=== PATIENT | male | born 1965 | race Caucasian/White ===

== ENCOUNTER 2018-09-06 11:23 | Outpatient (CLI) | payer BC ==
[~2018-09-06 11:23] MED LIST: DIPH25CA83 PO; ONDA4TAB6 PO
== END 2018-09-06 23:59 | disposition home or self-care (01) ==
LOC: VAS 11:23
PROVIDERS: ATTEND Family Medicine
DX: I82.441 Acute embolism and thrombosis of right tibial vein (principal)
CPT/HCPCS: 93971

== ENCOUNTER 2022-12-19 16:48 | Emergency (ER) | payer BC ==
[~2022-12-19] VITALS: Ht 188 cm; Wt 97.0 kg
[2022-12-19 17:33] LABS: BASOPHILS # (AUTO) 0.1 X10'3 (0-0.2); BASOPHILS % (AUTO) 0.5 % (0-1); EOSINOPHILS # (AUTO) 0.1 X10'3 (0-0.9); EOSINOPHILS % (AUTO) 0.5 % (0-6); HEMATOCRIT 49.7 % (42.0-52.0); HEMOGLOBIN 16.6 g/dl (14.0-17.9); LYMPHOCYTES % (AUTO) 9.8 % (21-51); MEAN CORPUSCULAR HEMOGLOBIN 30.9 PG (27.0-31.0); MEAN CORPUSCULAR HGB CONC 33.5 g/dL (33.0-36.5); MEAN CORPUSCULAR VOLUME 92.2 FL (78-98); MEAN PLATELET VOLUME 7.6 FL (7.4-10.4); MONOCYTES # (AUTO) 0.8 X10'3 (0-0.9); MONOCYTES % (AUTO) 7.2 % (2-12); NEUTROPHILS # (AUTO) 8.6 X10'3 (1.8-7.7); PLATELET COUNT 210 X10'3 (140-440); RED BLOOD COUNT 5.39 X10'6 (4.70-6.10); RED CELL DISTRIBUTION WIDTH 13.1 % (11.5-14.5); WHITE BLOOD COUNT 10.5 X10'3 (4.5-11.0)
[2022-12-19 17:36] LABS: ALANINE AMINOTRANSFERASE 28 U/L (12-78); ALBUMIN 3.8 G/DL (3.4-5.0); ALKALINE PHOSPHATASE 62 IU/L (46-116); ANION GAP 8 (8-16); ASPARTATE AMINO TRANSFERASE 19 U/L (10-37); BILIRUBIN,TOTAL 0.5 MG/DL (0.1-1.0); BLOOD UREA NITROGEN 18 MG/DL (7-18); BUN/CREATININE RATIO 14.8 (10.0-20.0); CALCIUM 9.1 MG/DL (8.5-10.1); CHLORIDE 106 MMOL/L (99-107); CREATININE 1.22 MG/DL (0.60-1.10); GLUCOSE 113 MG/DL (70-104); POTASSIUM 4.1 MMOL/L (3.5-5.1); SODIUM 140 MMOL/L (135-145); TOTAL CARBON DIOXIDE 26.4 MMOL/L (24-32); TOTAL PROTEIN 7.5 G/DL (6.4-8.2); eGFR 61 ML/MIN
[2022-12-19] MEDS ORDERED: dexamethasone sod phosphate 10mg/ml inj IV STA (19:33)
[2022-12-19] MEDS ORDERED: normal saline 1000ml 1,000 ML IV SCH (19:35)
[2022-12-19] MEDS ORDERED: ketorolac trometh. 30mg/ml inj. IV ONE (19:35)
[2022-12-19] MEDS ORDERED: LORazepam 2 mg/ml vial IV ONE (19:35)
--- NOTE | 2022-12-19 19:45 | NUR ---
Pt ref to have Decadron and Ativan at this time. Pt wanted to see if the Toradol was effective.
--- NOTE | 2022-12-19 21:09 | NUR ---
WENT IN TO ASSESS THE PATIENT AND ADMINISTER THE PATIENTS' MEDICATION. EDUCATION ON MEDICATIONS GIVEN. ALL QUESTIONS ANSWERED. REVIEWED LPNS' ASSESSMENT, AND EVERYTHING DOCUMENTED I AGREE WITH. THE PATIENT IS WITH HIS .
[2022-12-19] MEDS ORDERED: IBUP-1984 PO (21:47)
[2022-12-19] MEDS ORDERED: CYCL-1 PO (21:47)
[2022-12-19 22:11] VITALS: BP 122/72
== END 2022-12-19 21:55 | disposition home or self-care (01) ==
LOC: ER 16:50
DX: M54.9 Dorsalgia, unspecified (principal); M54.2 Cervicalgia; Z87.442 Personal history of urinary calculi; Z79.899 Other long term (current) drug therapy
CPT/HCPCS: 36415; 71045; 80053; 83735; 83880; 84484; 85025; 93005; 96361; 96374; 96375; 99285; J1100; J1885; J2060; J7030

== ENCOUNTER 2023-09-23 10:41 | Day surgery (SDC) | payer BC ==
[2023-09-22 15:52] LABS: BASOPHILS % (AUTO) 0.7 % (0-1); BILIRUBIN,URINE NEGATIVE (Neg); CLARITY,URINE CLEAR (Clear); COLOR,URINE YELLOW (Yellow); EOSINOPHILS # (AUTO) 0.2 X10'3 (0-0.9); EOSINOPHILS % (AUTO) 3.6 % (0-6); GLUCOSE, URINE NEGATIVE (Neg); KETONES,URINE NEGATIVE (Neg); LEUKOCYTE ESTERASE ,URINE NEGATIVE (Neg); LYMPHOCYTES # (AUTO) 1.7 X10'3 (1.1-4.8); LYMPHOCYTES % (AUTO) 29.2 % (21-51); MEAN CORPUSCULAR HEMOGLOBIN 31.3 PG (27.0-31.0); MEAN CORPUSCULAR HGB CONC 33.3 g/dL (33.0-36.5); MONOCYTES # (AUTO) 0.6 X10'3 (0-0.9); MONOCYTES % (AUTO) 10.9 % (2-12); NEUTROPHILS # (AUTO) 3.3 X10'3 (1.8-7.7); NEUTROPHILS % (AUTO) 55.6 % (42-75); NITRITES, URINE NEGATIVE (Neg); OCCULT BLOOD,URINE TRACE-INTACT (Neg); PRE OP HEMATOCRIT 43.9 % (42.0-52.0); PRE OP HEMOGLOBIN 14.6 g/dL (14.0-17.9); PRE OP PLATELET COUNT 232 X10'3 (140-440); PRE OP WHITE BLOOD COUNT 5.9 10'3 (4.8-10.8); PROTEIN,URINE NEGATIVE (Neg); RED BLOOD COUNT 4.67 X10'6 (4.70-6.10); RED CELL DISTRIBUTION WIDTH 13.7 % (11.5-14.5); UROBILINOGEN,URINE 0.2 E.U/dL (0.2-1.0)
[2023-09-22 16:08] LABS: MUCUS STRANDS FEW /LPF (Neg); SQUAMOUS EPITHELIAL CELL,UR FEW /LPF (FEW); UA COLLECTION TYPE CLN CATCH MIDSTREAM
[2023-09-22 16:09] LABS: ALBUMIN 3.8 G/DL (3.4-5.0); ALBUMIN/GLOBULIN RATIO 1.2 (1.1-1.5); ALKALINE PHOSPHATASE 53 IU/L (46-116); BACTERIA,URINE FEW /HPF (Neg); BLOOD UREA NITROGEN 13 MG/DL (7-18); BUN/CREATININE RATIO 9.4 (10.0-20.0); CALCIUM 9.1 MG/DL (8.5-10.1); CHLORIDE 106 MMOL/L (99-107); CREATININE 1.38 MG/DL (0.60-1.10); PRE OP ALT 48 U/L (30-65); PRE OP ANION GAP 10 (8-16); PRE OP AST 27 U/L (10-37); PRE OP BILIRUB, TOTAL 0.4 MG/DL (0.0-1.0); PRE OP GLUCOSE 91 MG/DL (70-104); PRE OP POTASSIUM 4.2 MMOL/L (3.4-5.1); PRE OP SODIUM 143 MMOL/L (135-145); TOTAL CARBON DIOXIDE 26.7 MMOL/L (24-32); WBC,URINE 0-4 /HPF (0-4); eGFR 53 ML/MIN
[2023-09-23] VITALS (15 sets, daily range): BP systolic 115–159; BP diastolic 70–96; PULSE 56–75; RESP 12–21; TEMP 97.8; O2SAT 16–97
[~2023-09-23] VITALS: Ht 188 cm; Wt 103.4 kg
[~2023-09-23 10:41] MED LIST changes: -DIPH25CA83 PO; +FLO0.4C PO; +IBUP-1984 PO; +OMEP20CA16 PO; -ONDA4TAB6 PO; +cefazolin 2gm/D5W 100mL 100 ML IV ONE; +famotidine 20mg tablet PO ONE; +ringers solution, lacted 1,000 ML IV SCH
[2023-09-23] MEDS ORDERED: IBUP-1984 PO (12:02)
[2023-09-23] MEDS ORDERED: BUPIVAcaine/PF 2.5mg/ml (0.25%) 10ml vial ONE (15:50)
[2023-09-23] MEDS ORDERED: fentaNYL/PF 50MCG/1 ML 2ML syringe ONE (16:39)
[2023-09-23] MEDS ORDERED: propofol inj 20 ML IV ONE (16:40)
[2023-09-23] MEDS ORDERED: rocuronium 10mg/ml inj IV ONE (16:40)
[2023-09-23] MEDS ORDERED: midazolam 1 mg/ML 2ml injection ONE (16:40)
[2023-09-23] MEDS ORDERED: ondansetron/PF 4mg/2ml inj ONE (17:34)
[2023-09-23] MEDS ORDERED: dexamethasone sod phosphate 4mg/ml inj. ONE (17:34)
[2023-09-23] MEDS ORDERED: acetaminophen 1,000mg/100ml IV 100 ML IV ONE (17:34)
[2023-09-23] MEDS ORDERED: BUPIVAcaine 0.5% inj/PF 30 ml vial IJ ONE (17:41)
[2023-09-23] MEDS ORDERED: sugammadex 200mg/2ml injection IV ONE (17:44)
[2023-09-23] MEDS ORDERED: meperidine/PF 50mg/ml syringe ONE (17:57)
[2023-09-23] MEDS ORDERED: ondansetron/PF 4mg/2ml inj IV PRN (18:00)
[2023-09-23] MEDS ORDERED: morphine 4 MG/ML inj SYRINge IV PRN (18:00)
[2023-09-23] MEDS ORDERED: proCHLORperazine 10 MG/2 ml inj IV PRN (18:00)
[2023-09-23] MEDS ORDERED: ketorolac trometh. 30mg/ml inj. IV ONE (18:00)
[2023-09-23] MEDS ORDERED: ringers solution, lacted 1,000 ML IV SCH (18:00)
[2023-09-23] MEDS ORDERED: morphine 2 MG/ML inj. syringe IV PRN (18:00)
[2023-09-23] MEDS ORDERED: meperidine/PF 25mg/ml syringe IV PRN ×3 (18:00)
[2023-09-23] MEDS ORDERED: oxyCODONE/APAP 10/325mg tablet PO ONE (18:55)
== END 2023-09-23 20:06 | disposition home or self-care (01) ==
LOC: PAS 10:41
PROVIDERS: ATTEND Surgery
DX: K42.9 Umbilical hernia without obstruction or gangrene (principal); M62.08 Separation of muscle (nontraumatic), other site; G89.29 Other chronic pain; G47.30 Sleep apnea, unspecified; N40.0 Benign prostatic hyperplasia without lower urinary tract symptoms; Z79.899 Other long term (current) drug therapy; Z98.890 Other specified postprocedural states; Z72.89 Other problems related to lifestyle; Z86.718 Personal history of other venous thrombosis and embolism; Z87.442 Personal history of urinary calculi; Z80.1 Family history of malignant neoplasm of trachea, bronchus and lung
CPT/HCPCS: 36415; 49613; 80053; 81001; 82948; 85025; 93005; C1781; J0131; J0690; J1100; J1885; J2175; J2250; J2405; J2704; J3010; J3490; J7030; J7120; S0020; Z7506; Z7508; Z7512; A4618; A7000

== ENCOUNTER 2023-10-06 11:31 | Outpatient (CLI) | payer BC ==
[~2023-10-06 11:31] MED LIST changes: -cefazolin 2gm/D5W 100mL 100 ML IV ONE; -famotidine 20mg tablet PO ONE; -ringers solution, lacted 1,000 ML IV SCH
[2023-10-06] MEDS ORDERED: RIVA15TA PO (14:50)
== END 2023-10-06 23:59 | disposition home or self-care (01) ==
LOC: VAS 11:31
PROVIDERS: ATTEND Surgery
DX: I82.533 Chronic embolism and thrombosis of popliteal vein, bilateral (principal); R22.43 Localized swelling, mass and lump, lower limb, bilateral; M79.662 Pain in left lower leg; M79.661 Pain in right lower leg
CPT/HCPCS: 93970

== ENCOUNTER 2023-10-06 12:36 | Emergency (ER) | payer BC ==
[~2023-10-06] VITALS: Ht 188 cm; Wt 102.6 kg
[2023-10-06 12:47] VITALS: TEMP 98.7
[2023-10-06 13:57] LABS: BASOPHILS % (AUTO) 0.2 % (0-1); EOSINOPHILS # (AUTO) 0.3 X10'3 (0-0.9); EOSINOPHILS % (AUTO) 3.3 % (0-6); HEMATOCRIT 44.6 % (42.0-52.0); HEMOGLOBIN 14.9 g/dl (14.0-17.9); LYMPHOCYTES # (AUTO) 1.5 X10'3 (1.1-4.8); LYMPHOCYTES % (AUTO) 17.4 % (21-51); MEAN CORPUSCULAR HEMOGLOBIN 31.1 PG (27.0-31.0); MEAN CORPUSCULAR HGB CONC 33.5 g/dL (33.0-36.5); MEAN CORPUSCULAR VOLUME 92.9 FL (78-98); MEAN PLATELET VOLUME 7.6 FL (7.4-10.4); MONOCYTES # (AUTO) 0.5 X10'3 (0-0.9); NEUTROPHILS # (AUTO) 6.1 X10'3 (1.8-7.7); NEUTROPHILS % (AUTO) 73.1 % (42-75); PLATELET COUNT 234 X10'3 (140-440); RED CELL DISTRIBUTION WIDTH 13.3 % (11.5-14.5); WHITE BLOOD COUNT 8.4 X10'3 (4.5-11.0)
[2023-10-06 14:12] LABS: APTT 27 SECONDS (22-32); PROTHROMBIN TIME 10.6 SECONDS (9.0-12.0)
[2023-10-06 14:14] LABS: ALANINE AMINOTRANSFERASE 35 U/L (12-78); ALBUMIN 3.5 G/DL (3.4-5.0); ALBUMIN/GLOBULIN RATIO 0.9 (1.1-1.5); ALKALINE PHOSPHATASE 59 IU/L (46-116); ANION GAP 7 (8-16); ASPARTATE AMINO TRANSFERASE 18 U/L (10-37); BILIRUBIN,TOTAL 0.5 MG/DL (0.1-1.0); BLOOD UREA NITROGEN 12 MG/DL (7-18); BUN/CREATININE RATIO 11.1 (10.0-20.0); CALCIUM 9.3 MG/DL (8.5-10.1); CHLORIDE 105 MMOL/L (99-107); CREATININE 1.08 MG/DL (0.60-1.10); GLUCOSE 112 MG/DL (70-104); POTASSIUM 4.2 MMOL/L (3.5-5.1); SODIUM 142 MMOL/L (135-145); TOTAL PROTEIN 7.2 G/DL (6.4-8.2); eCRCL 87 ML/MIN; eGFR 70 ML/MIN
[2023-10-06 14:17] LABS: MAGNESIUM 1.9 MG/DL (1.5-2.4)
[2023-10-06] MEDS ORDERED: RIVA15TA PO (14:50)
[2023-10-06 15:04] VITALS: BP 103/63; PULSE 70; RESP 16; O2SAT 95
== END 2023-10-06 15:20 | disposition home or self-care (01) ==
LOC: ER 12:37
DX: I82.492 Acute embolism and thrombosis of other specified deep vein of left lower extremity (principal); I87.092 Postthrombotic syndrome with other complications of left lower extremity; Z87.448 Personal history of other diseases of urinary system; Z79.899 Other long term (current) drug therapy
CPT/HCPCS: 36415; 80053; 83735; 84484; 85025; 85610; 85730; 99284

== ENCOUNTER → 2025-02-04 | Emergency (ER) | payer BC ==
[~2025-02-04] VITALS: Ht 188 cm; Wt 215.0 kg
[~2025-02-04] MED LIST changes: -FLO0.4C PO; +RIVA15TA PO; +TAMS-55 PO
[2025-02-04 20:44] VITALS: BP 125/66; PULSE 95; RESP 18; TEMP 97.8; O2SAT 96
--- NOTE | 2025-02-04 22:57 | Physician Documentation ---
History of Present Illness ~ Chief Complaint: Blurred Vision Stated Complaint: BLURRY VISION Time Seen by MD: 22:15 OK to notify your PCP?: Yes Primary Medical Doctor: ANA KAMARA Source: patient Mode of Arrival: POV Exam Limitations: no limitations HPI Mingo is a 59-year-old male presenting for a 20 minute episode of having letters disappear when trying to read at approximately 1:00 p.m. today. He states he was reading something and noticed it certain letters were missing such as the "O, N and K" and the letters looked like they were falling off the page as he was reading. He reports that he stopped reading for about 20 minutes to give himself a break and when he returned to try to read something he was able to read normally. 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 He admits that he can be forgetful and sometimes does not take the Xarelto everyday. He reports that he has had normal bilateral carotid Dopplers but does not remember the year that he had them done. He is currently asymptomatic. Medication Reconciliation Allergies: Coded Allergies: No Known Allergies (Unverified , 11/17/14) Scheduled Ibuprofen* (Motrin*), 400 MG PO Q6H, (Reported) Omeprazole (Omeprazole), 1 CAP PO TIDWM, (Reported) Rivaroxaban (Xarelto), 1 TAB PO BIDBD Tamsulosin Hcl* (Flomax*), 1 TAB PO BID, (Reported) Past Medical History Past Medical History: Sinusitis, Kidney Stones, *MUSCULOSKELETAL*, Deep Vein Thrombosis Past Surgical History: orthopedic surgeries Alcohol Use: Occasionally Drug Use: none Lives with: Family Lives In: Home Occupation: employed Review of Systems All Other Systems at this time: Reviewed and Negative Physical Exam Vital Signs: RN Vital Signs have been reviewed: Yes, Temperature: 97.8, Source: Oral, Heart Rate: 95, Respiratory Rate: 18, BP: 125/66, Pulse Oximetry: 96, Weight: 215.000 Pulse Oximetry Reflects: adequate oxygenation General Appearance: alert, no apparent distress Pupils/EOM/Fundus: PERRLA, EOM intact EENT: moist mucous membranes Ear: auricle normal Neck: normal inspection, full range of motion, supple Neck No carotid bruit. Respiratory: lungs clear, normal breath sounds, no respiratory distress Chest: no accessory muscle use, chest non-tender Cardiovascular: regular rate, rhythm, no edema, no gallop, no JVD Extremities: normal inspection Orientation / Memory / CN Exam: oriented x3, memory intact, normal speech Motor / Sensory: no motor deficit Coordination / Gait: normal gait Psychiatric: appropriate Skin: warm/dry Progress Results/Orders Results/Orders Vital Signs 02/04/25 20:44 Temp 97.8 Pulse 95 Resp 18 B/P (MAP) 125/66 Pulse Ox 96 Medical Decision Making Additional info obtained from: old records Findings Mingo is a 59-year-old male with reports of a 20 minute episode of difficulty reading as the letters or either missing or falling off the page. This resolved after taking a break from reading. He is on Xarelto 20 mg for which she is supposed to be taking daily but he admits to forgetting to take it at times. He has a history of blood clots in his legs. I discussed this case with Dr. Brewster. He recommended that since this patient has had normal bilateral carotid Dopplers and on exam there is no carotid bruit that this is likely not the cause and that this patient does not require a CT scan of the head. He recommends th is patient follow up with Ophthalmology as they can perform specialized tests that we do not have in the emergency department. This patient is able to read normally with his glasses and has normal visual acuity testing which was performed in front of me by the nurse. We discussed the possibility of a TIA since this was only a 20 minute episode and self-resolved. We discussed that if he has any more symptoms like this to please return to the emergency department. Return to the emergency department for any new or worsening symptoms and follow up with his primary care provider in the next 3 days. Using shared decision- making with the patient he agrees to this plan of not performing a CT head today and instead following up with an conductor symphonic orchestra and returning back here for any stroke-like symptoms or symptoms that he had today. His NIH score was 0. Differential Dx:Considerations: Include: German's Palsey, CVA, Hypoxemia Departure Disposition: HOME / SELF CARE / HOMELESS Impression: Primary Impression: Blurring of visual image Condition: Stable Discharge Instructions: Blurred Vision, Adult Additional Instructions: Primary care provider on Thursday as well as the conductor symphonic orchestra for follow up. Return to the emergency department for any new or worsening symptoms. Can take continue taking Xarelto as prescribed. Referrals: NO PRIMARY CARE PROVIDER (PCP) Education Educated: Patient Educated regarding: diagnosis, treatment, prognosis, need for follow up Signature Scribe Signature: . Attestation: Scribed for Christi Noble Wool Spotter by Christi Molina NP . 02/05/25 01:31 CHRISTI NOBLE [employer]CH[employer]IC February 04, 2025 22:57
== END | disposition home or self-care (01) ==
LOC: ER 20:42
DX: H53.8 Other visual disturbances (principal); Z86.718 Personal history of other venous thrombosis and embolism; Z79.899 Other long term (current) drug therapy; Z72.89 Other problems related to lifestyle; Z98.890 Other specified postprocedural states; Z87.442 Personal history of urinary calculi
CPT/HCPCS: 99281